=== PATIENT | female | born 1985 | race Caucasian/White ===

== ENCOUNTER 2023-10-06 14:50 | Emergency (ER) | payer OTHER ==
[~2023-10-06] VITALS: Ht 167.6 cm; Wt 104.3 kg
[2023-10-06] MEDS ORDERED: KETOROLAC TROMETHAMINE INJ 30 MG/ML VIAL ONE (17:23)
[2023-10-06] MEDS ORDERED: BACLOFEN (10 MG) 10 MG TABLET ONE (17:23)
[2023-10-06] MEDS: KETOROLAC TROMETHAMINE INJ 60 MG/2 ML VIAL IM ONE (17:27)
[2023-10-06] MEDS: BACLOFEN (10 MG) 10 MG TABLET PO ONE (17:27)
--- NOTE | 2023-10-06 17:29 | NUR ---
Medicated as ordered. SEE eMAR
[2023-10-06] MEDS ORDERED: BACL5TAB PO (18:47)
[2023-10-06] MEDS ORDERED: KETO10TA2 PO (18:47)
[2023-10-06 18:59] VITALS: BP 145/68; TEMP 98.2; O2SAT 100
--- NOTE | 2023-10-06 18:59 | NUR ---
Patient discharged to home in stable condition. Written and verbal after care instructions given. Patient verbalizes understanding of instruction.
== END 2023-10-06 18:59 | disposition home or self-care (01) ==
LOC: ER 15:11
DX: S13.8XXA Sprain of joints and ligaments of other parts of neck, initial encounter (principal); R07.89 Other chest pain; M25.512 Pain in left shoulder; Z79.899 Other long term (current) drug therapy; V89.2XXA Person injured in unspecified motor-vehicle accident, traffic, initial encounter; Y93.89 Activity, other specified; Y92.89 Other specified places as the place of occurrence of the external cause; Y99.8 Other external cause status
CPT/HCPCS: 99285; 72125; 96372; 71100; 73030; 70450; J1885